=== PATIENT | male | born 1955 | race Caucasian/White ===

== ENCOUNTER → 2020-11-18 | Outpatient (CLI) | payer OTHER, BC ==
[~2020-11-18] MED LIST: ALLO100T PO; AMLO-77 PO; AMOX-355 PO; ATEN25TA PO; HYDR-34 PO; METF-399 PO; PANT40TA52 PO; PRD20T PO; SIMV20TA26 PO
== END ==
LOC: LABNPT 14:37
PROVIDERS: ATTEND Nurse Practitioner Family
DX: Z01.89 Encounter for other specified special examinations (principal)
CPT/HCPCS: 84145